=== PATIENT | female | born 1950 | race Caucasian/White ===

== ENCOUNTER 2019-07-09 15:27 | Inpatient (IN) | payer OTHER ==
[~2019-07-09 15:27] MED LIST: SODIUM CHLORIDE 1,000 ML IV ONE
[2019-07-09] MEDS ORDERED: ONDANSETRON 4 MG/2 ML VIAL IVPB ONE (15:54)
[2019-07-09] MEDS ORDERED: morphine CARPU-JECT 2 MG/1 ML DISP.SYRIN IVPUSH ONE ×3 (15:54→19:18)
--- NOTE | 2019-07-09 15:59 | PDOC ---
History of Present Illness - General Chief Complaint: Nausea/Vomiting Stated Complaint: VOMITING, ABD PAIN Time Seen by Provider: 07/09/19 15:31 History Source: Patient Exam Limitations: No Limitations - History of Present Illness Travel History: No Initial Comments: 07/09/19 15:54 69y F hx of htn presents with lower abd pain. Pt notse she has had a mass on her suprpuabic region for many years, it typically is soft and non painful, but occasionally would become more painful and hard, but wuld usually spontaneously resolve. The pt notse today it started while she was watching a swim meet and has not gone away, there was 2 episodes of nbnb vomiting. she did hav ea bm prior to arrival [place] tw[place] normal. pt denies any cp, sob, fever/chills, back pain , dysuria/hematuria. no pmd last meal around noon but had some water around 2pm family hx noncontributory social: denies etoh abuse, ivdu ROS Constitutional - no reported Fever, Chills, HEENT: no reported vision changes, sore throat Respiratory: no reported cough, sob, hemoptysis Cardiac: no reported chest pain, palpitations, light headedness, leg swelling Abd/GI: +abd pain, nausea, vomiting, no reported blood per rectum, melena, diarrhea : no reported dysuria, frequency, discharge Musculskelatal - no reported back pain, joint swelling skin - no reported bruising, erythema, rash neurological: no reported headache, numbness, focal weakness, tingling, ataxia, hematologic: no reported easy bruising, easy bleeding Physical Exam GENERAL: The patient is awake, alert, and fully oriented, Nontoxic - in no acute distress. HEAD: Normocephalic, atraumatic. EYES: extraocular movements intact, sclera anicteric, conjunctiva clear. ENT: Normal voice, Moist mucous membranes. NECK: Normal range of motion, supple LUNGS: Breath sounds equal, clear to auscultation bilaterally. No wheezes, no rhonchi, no rales. HEART: Regular rate and rhythm, normal S1 and S2 without murmur, rub or gallop. ABDOMEN: Soft, large hernia measuring approx ~10cm x 10cm on suprpubic/inguinal region that is firm and tender to palpation EXTREMITIES: Normal range of motion, no edema. No clubbing or cyanosis. No cords, erythema, or tenderness. NEUROLOGICAL: No facial assymetry, Normal speech, PSYCH: Normal mood, normal affect. SKIN: Warm, Dry, normal turgor, suspect hernia will attempt reduction, if not successful will obtain CT of abdomen Past History - Past Medical History Allergies/Adverse Reactions: Allergies Allergy/AdvReac Type Severity Reaction Status Date / Time No Known Allergies Allergy Verified 07/09/19 15:31 Home Medications: Ambulatory Orders Bisoprolol 2.5MG/Hctz 6.25MG [Ziac (Nf)] 1 tab PO DAILY 07/09/19 COPD: No HTN: Yes - Suicide/Smoking/Psychosocial Hx Smoking History: Never smoked Hx Alcohol Use: Yes (SOCIAL) Drug/Substance Use Hx: No *Physical Exam - Vital Signs Last Vital Signs Temp Pulse Resp BP Pulse Ox 97.7 F 59 L 20 195/97 H 95 07/09/19 15:28 07/09/19 15:28 07/09/19 15:28 07/09/19 15:28 07/09/19 15:28 ED Treatment Course - LABORATORY CBC & Chemistry Diagram: 07/10/19 07:25 07/10/19 07:25 Medical Decision Making - Medical Decision Making 07/09/19 17:12 ct abd suggestive of incarcerated hernia will discuss with surgery 07/09/19 17:[address] rocha will transfer to surgery for evaluation and possible surgury as OR not available here. 07/09/19 17:[address] mcdaniel agree with admission for further management *DC/Admit/Observation/Transfer Diagnosis at time of Disposition: Incarcerated inguinal hernia - Discharge Dispostion Disposition: HOME Condition at time of disposition: Improved Decision to Admit order: Yes - Referrals - Patient Instructions - Post Discharge Activity
[2019-07-09] MEDS ORDERED: ONDANSETRON 4 MG/2 ML VIAL ONE (16:04)
[2019-07-09] MEDS ORDERED: morphine SULFATE 4 MG/ML VIAL ONE ×3 (16:04→19:19)
[2019-07-09 16:19] LABS: BASO % 0.3 % (0-2.0); EOS % 0.2 % (0-4.5); HEMATOCRIT 45.2 % (32.4-45.2); HEMOGLOBIN 15.1 GM/dl (10.7-15.3); LYMPH % 9.5 % (8-40); MCH 27.2 pg (25.7-33.7); MCHC 33.3 g/dl (32.0-36.0); MEAN CELL VOLUME 81.6 fl (80-96); MEAN PLT VOLUME 10.7 fl (7.5-11.1); MONO % 1.3 % (3.8-10.2); NEUT % 88.7 % (42.8-82.8); PLATELET COUNT 208 K/MM3 (134-434); RBC 5.53 M/mm3 (3.60-5.2); RDW 13.6 % (11.6-15.6); WHITE BLOOD COUNT 12.5 K/mm3 (4.0-10.8)
[2019-07-09 16:33] LABS: ALBUMIN 4.3 g/dl (3.4-5.0); BILIRUBIN,TOTAL 0.8 mg/dl (0.2-1); CALCIUM 9.4 mg/dl (8.5-10); CREATININE 0.6 mg/dl (0.55-1.3); POTASSIUM 3.5 mmol/L (3.5-5.1); TOT PROT 7.3 g/dl (6.4-8.2)
[2019-07-09] MEDS ORDERED: morphine CARPU-JECT 4 MG/1 ML DISP.SYRIN IVPUSH ONE (17:13)
[2019-07-09] MEDS ORDERED: METOCLOPRAMIDE HCL INJECTION 10 MG/2 ML VIAL IVPUSH ONE (17:16)
[2019-07-09] MEDS ORDERED: METOCLOPRAMIDE HCL INJECTION 10 MG/2 ML VIAL ONE (17:48)
[2019-07-09 17:52] LABS: INR 1.14 (0.82-1.09); PROTHROMBIN TIME (PATIENT) 12.7 SEC (10.2-13.0)
--- NOTE | 2019-07-09 18:24 | CONSULT ---
Consult Consult Specialty:: General Surgery Reason for Consultation:: incarcerated groin hernia - History of Present Illness Chief Complaint: groin pain History of Present Illness: 69yo female PMH obesity, htn, undiagnosed DM type 2, and a long standing right inguinal hernia presented with acut onsent pain in the lower abdomen. She noted she has had a mass on her suprpuabic region for many years, it typically is soft and non painful, but occasionally would become more painful and hard, but wuld usually spontaneously resolve. The pt notse today it started while she was watching a swim meet and has not gone away, there was 2 episodes of nbnb vomiting. she did hav ea bm prior to arrival [place] normal. pt denies any cp, sob, fever/chills, back pain, dysuria/hematuria. Ct confirms chronically incarcerated RIH with intenstinal contents. we were called assess. - History Source History Provided By: Patient, Medical Record Limitations to Obtaining History: No Limitations - Past Medical History Cardio/Vascular: Yes: HTN Gastrointestinal: Yes: Other (long standing inguinal hernia ) Additional Medical History: obesity - Alcohol/Substance Use Hx Alcohol Use: Yes (SOCIAL) History of Substance Use: reports: None - Smoking History Smoking history: Never smoked - Social History Place of : [facility] Home Medications - Allergies Allergies/Adverse Reactions: Allergies Allergy/AdvReac Type Severity Reaction Status Date / Time No Known Allergies Allergy Verified 07/09/19 15:31 - Home Medications Home Medications: Ambulatory Orders Bisoprolol 2.5MG/Hctz 6.25MG [Ziac (Nf)] 1 tab PO DAILY 07/09/19 Review of Systems - Review of Systems Constitutional: denies: Chills, Fever Eyes: denies: Blind Spots, Recent Change in Vision HENT: denies: Difficult Swallowing, Throat Pain Neck: denies: Pain on Movement, Tenderness Cardiovascular: denies: Chest Pain, Palpitations Respiratory: denies: Cough, SOB Gastrointestinal: reports: Abdominal Pain, Constipation. denies: Diarrhea, Dysphagia Breasts: reports: No Symptoms Reported. denies: Pain Musculoskeletal: denies: Back Pain, Joint Swelling, Muscle Pain Integumentary: denies: Lesions, Rash Neurological: denies: Syncope, Tremors Endocrine: denies: Unexplained Weight Gain, Unexplained Weight Loss Hematology/Lymphatic: denies: Easily Bruised, Excessive Bleeding Psychiatric: denies: Anxiety, Depression Physical Exam Vital Signs: Vital Signs Temperature 97.8 F 07/09/19 17:42 Pulse Rate 65 07/09/19 17:42 Respiratory Rate 18 07/09/19 17:42 Blood Pressure 160/85 07/09/19 17:42 O2 Sat by Pulse Oximetry (%) 95 07/09/19 17:42 Constitutional: Yes: Well Nourished, No Distress, Calm, Obese Eyes: Yes: Conjunctiva Clear, EOM Intact HENT: Yes: Atraumatic, Normocephalic Neck: Yes: Supple, Trachea Midline Cardiovascular: Yes: Regular Rate and Rhythm, S1, S2 Respiratory: Yes: Regular, CTA Bilaterally Gastrointestinal: Yes: Normal Bowel Sounds, Soft, Abdomen, Obese, Hernia (right inguinal hernia 8cm), Tenderness. No: Tenderness, Epigastrium ...Rectal Exam: Yes: Deferred Renal/: No: CVA Tenderness - Left, CVA Tenderness - Right Musculoskeletal: No: Muscle Pain, Muscle Weakness Extremities: No: Cool, Cyanosis Edema: No Peripheral Pulses WNL: Yes Integumentary: No: Jaundice, Rash Neurological: Yes: Alert, Oriented Psychiatric: Yes: Alert, Oriented Labs: CBC, BMP 07/09/19 16:00 07/09/19 16:00 Imaging - Results Cat Scan: Report Reviewed, Image Reviewed Problem List - Problems (1) Incarcerated right inguinal hernia Assessment/Plan: 69yo female with incarcearated Right inguinal hernia confirmed on CT scan, reduced prior to OR, will post postpone until morning. Hyperglycemia (Random fasting glucose 292) NPO and IVF hydration IV antibiotics Adequate analgesia NGT if emesis starts OR for emergent repair before bowel compromise ensues Discussed with patient risks, benefits and alternatives of laparoscopic possible open ectomy, including but not limited to bleeding, infection, injury to adjacent structures, leak or injury, intraabdominal abscess, incisional hernia, need for further procedures, ; alternatives include antibiotics, delayed or no surgery - risks of this include failure of nonoperative therapy, perforation, sepsis, recurrence, . Patient desires to proceed with operation - will take to OR for above. Informed consent signed for same. Thank you for the opportunity to participate in the care of this patient. Code(s): K40.30 - UNIL INGUINAL HERNIA, W OBST, W/O GANGR, NOT SPCF RECUR (2) Abdominal pain in female patient Code(s): R10.9 - UNSPECIFIED ABDOMINAL PAIN (3) HTN (hypertension) Code(s): I10 - ESSENTIAL (PRIMARY) HYPERTENSION Qualifiers: Hypertension type: essential hypertension Qualified Code(s): I10 - Essential (primary) hypertension (4) Obesity (BMI 30.0-34.9) Code(s): E66.9 - OBESITY, UNSPECIFIED (5) Leukocytosis Code(s): D72.829 - ELEVATED WHITE BLOOD CELL COUNT, UNSPECIFIED (6) Inguinal hernia with bowel obstruction Code(s): K40.30 - UNIL INGUINAL HERNIA, W OBST, W/O GANGR, NOT SPCF RECUR
[2019-07-09] MEDS ORDERED: fentaNYL CITRATE 250 MCG/5 ML VIAL ONE (19:25)
[2019-07-09] MEDS ORDERED: MIDAZOLAM HCL 2 MG/2 ML SINGLE DOSE VIAL ONE (19:25)
[2019-07-09] MEDS ORDERED: ROCURONIUM BROMIDE 50 MG/5 ML SYRINGE ONE (19:26)
[2019-07-09] MEDS ORDERED: SUCCINYLCHOLINE CHLORIDE 200 MG/10 ML SYRINGE ONE (19:26)
[2019-07-09] MEDS ORDERED: LIDOCAINE HCL/PF 2% SDV 5ML VIAL ONE (19:27)
[2019-07-09] MEDS ORDERED: PROPOFOL 20 ML ONE (19:27)
[2019-07-09] MEDS ORDERED: KETOROLAC TROMETHAMINE 30 MG/1 ML VIAL ONE (19:28)
[2019-07-09] MEDS ORDERED: DEXAMETHASONE SOD PHOSPHATE 4 MG/1 ML VIAL ONE (19:28)
--- NOTE | 2019-07-09 19:31 | HP ---
Admitting History and Physical - Primary Care Physician PCP: None - Admission Chief Complaint: Abdominal Pain, Vomiting History of Present Illness: This is a 69 y/o woman with a PMHx of HTN, HLD, abdominal mass x years. Who presents from [place] ED with suprapubic abdominal pain, swelling and vomiting x today. Patient reports while at a swim meet she began to have severe pain that was unresolved. She reports having NBNB emesis. Patient reports eating cranberry with nuts today. Had a BM today. Patient denies fever, chills, cough, [place], dizziness, CP, palpitations, diarrhea, constipation, dysuria History Source: Patient Limitations to Obtaining History: No Limitations - Past Medical History Cardiovascular: Yes: HTN Gastrointestinal: Yes: Other (long standing inguinal hernia ) Reproductive: Yes: Postmenopausal Additional Past Medical History: Retinal Detachment and Repair R- Eye - Past Surgical History Additional Past Surgical History: Retinal Detachment Repair - Smoking History Smoking history: Never smoked - Alcohol/Substance Use Hx Alcohol Use: Yes (SOCIAL) History of Substance Use: reports: None - Social History Usual Living Arrangement: Yes: With Spouse, With Child ADL: Independent 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 History of Recent Travel: No Home Medications - Allergies Allergies/Adverse Reactions: Allergies Allergy/AdvReac Type Severity Reaction Status Date / Time No Known Allergies Allergy Verified 07/09/19 15:31 - Home Medications Home Medications: Ambulatory Orders Bisoprolol 2.5MG/Hctz 6.25MG [Ziac (Nf)] 1 tab PO DAILY 07/09/19 Family Disease History - Family Disease History Family Disease History: Heart Disease: Father ([place]), Other: Mother (Dementia) Other Family History: Maternal Aunt, Cousin- Diabetes Review of Systems - Review of Systems Constitutional: reports: No Symptoms Eyes: reports: No Symptoms HENT: reports: No Symptoms Neck: reports: No Symptoms Cardiovascular: reports: No Symptoms Respiratory: reports: No Symptoms Gastrointestinal: reports: Abdominal Pain, Vomiting Genitourinary: reports: No Symptoms Breasts: reports: No Symptoms Reported Musculoskeletal: reports: No Symptoms Integumentary: reports: No Symptoms Neurological: reports: No Symptoms Endocrine: reports: No Symptoms Hematology/Lymphatic: reports: No Symptoms Psychiatric: reports: No Symptoms Pain Intensity: 0 Physical Examination Vital Signs: Vital Signs Temperature 97.8 F 07/09/19 18:22 Pulse Rate 57 L 07/09/19 18:22 Respiratory Rate 20 07/09/19 18:22 Blood Pressure 169/89 07/09/19 18:22 O2 Sat by Pulse Oximetry (%) 95 07/09/19 17:42 Constitutional: Yes: Well Nourished, No Distress, Calm, Obese Eyes: Yes: WNL, Conjunctiva Clear, EOM Intact, PERRL HENT: Yes: WNL, Atraumatic, Normocephalic Neck: Yes: WNL, Supple, Trachea Midline Cardiovascular: Yes: WNL, Regular Rate and Rhythm, S1, S2 Respiratory: Yes: WNL, Regular, CTA Bilaterally Gastrointestinal: Yes: Soft, Hypoactive Bowel Sounds. No: Tenderness, Tenderness, Epigastrium ...Rectal Exam: Yes: Deferred Renal/: Yes: WNL Breast(s): Yes: WNL Musculoskeletal: Yes: WNL Extremities: Yes: WNL Edema: No Peripheral Pulses WNL: Yes Neurological: Yes: WNL, Alert, Oriented, Cran Nerves II-XII Intact ...Motor Strength: WNL Psychiatric: Yes: WNL, Alert, Oriented Labs: CBC, BMP 07/09/19 16:00 07/09/19 16:00 Imaging - Results EKG: Image Reviewed Problem List - Problems (1) Incarcerated inguinal hernia Assessment/Plan: CTAP- suggestive incarcerated hernia Surgeon aware and is following- OR in am WBC 12.5 Zosyn started in ED, continue Continue IVF CBC, BMP, Lactic Acid in am Monitor vitals Code(s): K40.30 - UNIL INGUINAL HERNIA, W OBST, W/O GANGR, NOT SPCF RECUR (2) Leukocytosis Assessment/Plan: Likely secondary to incarcerated hernia Monitor CBC Zosyn given in ED, continue Monitor vitals Code(s): D72.829 - ELEVATED WHITE BLOOD CELL COUNT, UNSPECIFIED (3) Hyperglycemia Assessment/Plan: Possible new onset DM Glucose 171 BGMs HgbA1c in am ISS when diet resumed Consider Endocrinology consult outpatient Code(s): R73.9 - HYPERGLYCEMIA, UNSPECIFIED (4) HLD (hyperlipidemia) Assessment/Plan: Stable no current med Code(s): E78.5 - HYPERLIPIDEMIA, UNSPECIFIED (5) HTN (hypertension) Assessment/Plan: Stable Monitor BP Hold med for now- OR in am Lopressor IV prn Code(s): I10 - ESSENTIAL (PRIMARY) HYPERTENSION Qualifiers: Hypertension type: essential hypertension Qualified Code(s): I10 - Essential (primary) hypertension Assessment/Plan This is a 69 y/o woman with a PMHx of HTN, HLD, Abdominal Mass. Admitted for Incarcerated Hernia for further evaluation of their emergent condition Plan: See Problem List FEN NS@75ml/hr Replete lytes prn NPO DVT ppx OOB SCDs Hold AC- OR, then resume Dispo: Requires Inpatient Care Visit type - Emergency Visit Emergency Visit: Yes ED Registration Date: 07/09/19 Care time: The patient presented to the Emergency Department on the above date and was hospitalized for further evaluation of their emergent condition. - New Patient This patient is new to me today: Yes Date on this admission: 07/09/19 - Critical Care Critical Care patient: No
[2019-07-09 22:54] VITALS: BMI 34.3
[2019-07-10] MEDS: LACTATED RINGERS SOLUTION 1,000 ML IV SCH ×2 (03:20→15:41)
[2019-07-10] MEDS ORDERED: PIPERACILLIN/TAZOB 3.375 GM 3.375 GM in DEXTROSE 5%-WATER - 50 ML IVPB ONE ×2 (05:36→12:00)
[2019-07-10] MEDS ORDERED: PIPERACILLIN/TAZOBACTAM 3.375 GM VIAL IVPB ONE ×2 (05:46→16:21)
[2019-07-10] MEDS ORDERED: DEXTROSE 5%-WATER - 50 ML IVPB ONE ×2 (05:47→16:22)
[2019-07-10] MEDS ORDERED: fentaNYL CITRATE 250 MCG/5 ML VIAL ONE (07:22)
[2019-07-10] MEDS ORDERED: MIDAZOLAM HCL 2 MG/2 ML SINGLE DOSE VIAL ONE ×3 (07:23→08:41)
[2019-07-10] MEDS ORDERED: ROCURONIUM BROMIDE 50 MG/5 ML SYRINGE ONE (07:23)
[2019-07-10] MEDS ORDERED: PROPOFOL 20 ML ONE (07:23)
[2019-07-10] MEDS ORDERED: LIDOCAINE HCL 1%, 10 MG/ML (20ML VIAL) ONE (07:35)
[2019-07-10] MEDS ORDERED: ONDANSETRON 4 MG/2 ML VIAL IVPUSH PRN ×3 (07:51→16:05)
[2019-07-10 08:13] LABS: BASO % 0.3 % (0-2.0); EOS % 0.2 % (0-4.5); HEMATOCRIT 40.1 % (32.4-45.2); HEMOGLOBIN 13.5 GM/dL (10.7-15.3); LYMPH % 17.6 % (8-40); MCH 27.1 pg (25.7-33.7); MCHC 33.8 g/dl (32.0-36.0); MEAN CELL VOLUME 80.2 fl (80-96); MEAN PLT VOLUME 10.3 fl (7.5-11.1); MONO % 6.8 % (3.8-10.2); NEUT % 75.1 % (42.8-82.8); PLATELET COUNT 203 K/MM3 (134-434); RBC 4.99 M/mm3 (3.60-5.2); RDW 14.8 % (11.6-15.6); WHITE BLOOD COUNT 8.4 K/mm3 (4.0-10.0)
[2019-07-10] MEDS ORDERED: morphine SULFATE/PF 0.5 MG/ML (2cc Syringe - QUVA) IT ONE (08:28)
[2019-07-10] MEDS ORDERED: ceFAZolin SODIUM 1 GM VIAL ONE (08:35)
[2019-07-10] MEDS ORDERED: KETOROLAC TROMETHAMINE 30 MG/1 ML VIAL ONE (08:35)
[2019-07-10] MEDS ORDERED: ceFAZolin SODIUM 1 GM VIAL IVPB ONE (08:40)
[2019-07-10] MEDS ORDERED: ePHEDrine SULFATE 50 MG/1 ML AMPULE ONE (08:40)
--- NOTE | 2019-07-10 08:41 | CON.ID ---
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 History of Recent Travel: No Home Medications - Allergies Allergies/Adverse Reactions: Allergies Allergy/AdvReac Type Severity Reaction Status Date / Time No Known Allergies Allergy Verified 07/09/19 15:31 - Home Medications Home Medications: Ambulatory Orders Bisoprolol 2.5MG/Hctz 6.25MG [Ziac (Nf)] 1 tab PO DAILY 07/09/19 Family Disease History - Family Disease History Family Disease History: Heart Disease: Father ([place]), Other: Mother (Dementia) Other Family History: Maternal Aunt, Cousin- Diabetes Physical Exam Vital Signs: Vital Signs Temperature 98.5 F 07/10/19 06:36 Pulse Rate 77 07/10/19 06:36 Respiratory Rate 20 07/10/19 06:36 Blood Pressure 137/80 07/10/19 06:36 O2 Sat by Pulse Oximetry (%) 97 07/09/19 19:41 Labs: CBC, BMP 07/10/19 07:25
[2019-07-10 08:46] LABS: BLOOD UREA NITROGEN 15.6 mg/dL (7-18); CALCIUM 8.7 mg/dL (8.5-10.1); CREATININE 0.7 mg/dL (0.55-1.3); POTASSIUM 3.7 mmol/L (3.5-5.1)
[2019-07-10] MEDS ORDERED: BUPIVACAINE HCL/PF 0.5% (5 MG/ML) 30 ML VIAL IJ ONE (08:48)
[2019-07-10] MEDS ORDERED: DEXAMETHASONE SOD PHOSPHATE 4 MG/1 ML VIAL ONE (08:49)
--- NOTE | 2019-07-10 09:59 | OP ---
Operative Note - Note: Operative Date: 07/10/19 Pre-Operative Diagnosis: incarcerated right inguinal hernia with bowel obstruction Operation: incarcerated right inguinal hernia repair with mesh and plug Findings: large 8cm hernia, defect was 2.cm, high ligation of the sac, bard lagre mesh pug , and bard monofilament 2"X4" mesh Implants: Bard 2"X4" monofilament mesh and Bard large plug Post-Operative Diagnosis: Same as Pre-op Surgeon: Levi Washington Anesthesiologist/PLUG WIRER: Ishmael Mckeon Anesthesia: Spinal Estimated Blood Loss (mls): 11 Drains, Volume Out (mls): 100 (hobson (removed)) Fluid Volume Replaced (mls): 700 Operative Report Dictated: Yes
[2019-07-10] MEDS: PIPERACILLIN/TAZOB 3.375 GM 3.375 GM in DEXTROSE 5%-WATER - 50 ML IVPB SCH ×2 (10:00→17:23)
[2019-07-10] MEDS ORDERED: NALOXONE HCL 0.4 MG/ML VIAL IVPUSH PRN (10:38)
[2019-07-10] MEDS: ACETAMINOPHEN 325 MG TABLET (FP) PO SCH ×3 (10:45→23:02)
[2019-07-10 12:56] LABS: INR 1.07 (0.83-1.09); PROTHROMBIN TIME (PATIENT) 12.6 SEC (9.7-13.0)
--- NOTE | 2019-07-10 13:44 | EKG ---
Test Reason : Blood Pressure : / mmHG Vent. Rate : 066 BPM Atrial Rate : 066 BPM P-R Int : 142 ms QRS Dur : 142 ms QT Int : 448 ms P-R-T Axes : 066 033 033 degrees QTc Int : 469 ms NORMAL SINUS RHYTHM RIGHT BUNDLE BRANCH BLOCK ABNORMAL ECG NO PREVIOUS ECGS AVAILABLE Confirmed by LAMONT WHITE MD ([id number]) on 07/10/2019 1:43:47 PM Referred By: MAURILIO LEE Confirmed By:LAMONT WHITE MD
[2019-07-10] MEDS ORDERED: ONDANSETRON 4 MG/2 ML VIAL IVPUSH ONE (16:05)
--- NOTE | 2019-07-10 16:06 | PN ---
Progress Note, Physician Chief Complaint: abdominal pain History of Present Illness: This is a 69 y/o woman with a significant past medical history of hypertension, hyperlipidemia, abdominal mass. She was presented to the ED suprapubic abdominal pain, swelling and vomiting. She was found to have an incarcerated right inguinal hernia with bowel obstruction. She is s/p incarcerated right inguinal hernia repair with mesh and plug with Dr. Washington today. imaging: CTAP 07/09/2019: large right inguinal hernia measuring 9.3cm containing small bowel loops - Current Medication List Current Medications: Active Medications Acetaminophen (Tylenol -) 650 mg PO Q6H [facility] Last Admin: 07/10/19 10:45 Dose: 650 mg Diphenhydramine HCl (Benadryl Injection -) 25 mg IVPUSH ONCE PRN PRN Reason: FOR ITCHING Lactated Ringer's (Lactated Ringers Solution) 1,000 mls @ 83 mls/hr IV ASDIR JONATHAN Last Admin: 07/10/19 15:41 Dose: 83 mls/hr Piperacillin Sod/Tazobactam (Sod 3.375 gm/ Dextrose) 50 mls @ 100 mls/hr IVPB Q8H-IV JONATHAN; Protocol Last Admin: 07/10/19 10:00 Dose: Not Given Naloxone HCl (Narcan -) 0.4 mg IVPUSH ONCE PRN PRN Reason: Sedation Ondansetron HCl (Zofran Injection) 4 mg IVPUSH ONCE PRN PRN Reason: NAUSEA Ondansetron HCl (Zofran Injection) 4 mg IVPUSH Q6H PRN PRN Reason: NAUSEA Ondansetron HCl (Zofran Injection) 4 mg IVPUSH ONCE ONE Stop: 07/10/19 16:06 - Objective Vital Signs: Vital Signs Temperature 97.8 F 07/10/19 15:30 Pulse Rate 68 07/10/19 15:30 Respiratory Rate 18 07/10/19 15:30 Blood Pressure 126/72 07/10/19 15:30 O2 Sat by Pulse Oximetry (%) 96 07/10/19 15:30 Constitutional: Yes: Well Nourished, No Distress, Calm HENT: Yes: Atraumatic Neck: Yes: WNL, Supple Cardiovascular: Yes: Regular Rate and Rhythm Respiratory: Yes: WNL, Regular Gastrointestinal: Yes: Soft, Other ...Rectal Exam: Yes: Deferred Genitourinary: Yes: WNL Extremities: Yes: WNL Edema: No Integumentary: Yes: Incision Wound/Incision: Yes: Clean/Dry Neurological: Yes: Alert, Oriented Labs: CBC, BMP 07/10/19 07:25 07/10/19 07:25 INR, PTT INR 1.07 (0.83-1.09) 07/10/19 12:20 Problem List - Problems (1) Right inguinal hernia Assessment/Plan: s/p incarcerated right inguinal hernia repair with mesh and plug with Dr. Washington today. post surgery care - incentive spirometer - pain management with scheduled tylenol - zofran prn - SCDs - monitor on tele - early ambulation Code(s): K40.90 - UNIL INGUINAL HERNIA, W/O OBST OR GANGR, NOT SPCF RECUR (2) HTN (hypertension) Assessment/Plan: restart home meds Code(s): I10 - ESSENTIAL (PRIMARY) HYPERTENSION Qualifiers: Hypertension type: essential hypertension Qualified Code(s): I10 - Essential (primary) hypertension (3) Incarcerated inguinal hernia Assessment/Plan: s/p surgical repair today Code(s): K40.30 - UNIL INGUINAL HERNIA, W OBST, W/O GANGR, NOT SPCF RECUR (4) Obesity (BMI 30.0-34.9) Assessment/Plan: nutritional evaluation as an outpatient Code(s): E66.9 - OBESITY, UNSPECIFIED (5) Prophylactic measure Assessment/Plan: fen on regular diet per surgery monitor electrolytes, labs in a.m. full code SCDs Code(s): Z29.9 - ENCOUNTER FOR PROPHYLACTIC MEASURES, UNSPECIFIED Visit type - Emergency Visit Emergency Visit: Yes ED Registration Date: 07/09/19 Care time: The patient presented to the Emergency Department on the above date and was hospitalized for further evaluation of their emergent condition. - New Patient This patient is new to me today: Yes Date on this admission: 07/10/19 - Critical Care Critical Care patient: No - Discharge Referral Referred to [facility] Med P.C.: No
[2019-07-11] MEDS ORDERED: DEXTROSE 5%-WATER - 50 ML IVPB ONE ×2 (01:28→09:41)
[2019-07-11] MEDS ORDERED: PIPERACILLIN/TAZOBACTAM 3.375 GM VIAL IVPB ONE ×2 (01:28→09:41)
[2019-07-11] MEDS: PIPERACILLIN/TAZOB 3.375 GM 3.375 GM in DEXTROSE 5%-WATER - 50 ML IVPB SCH ×2 (01:39→10:54)
[2019-07-11] MEDS: ACETAMINOPHEN 325 MG TABLET (FP) PO SCH ×2 (04:25→10:50)
--- NOTE | 2019-07-11 08:38 | PN ---
Progress Note (short form) - Note Progress Note: Anesthesia /Pain Pt seen and examined S:Alert and awake comfortable O: Vital Signs Temperature 98.0 F 07/11/19 06:00 Pulse Rate 68 07/11/19 06:00 Respiratory Rate 16 07/11/19 06:00 Blood Pressure 127/77 07/11/19 06:00 O2 Sat by Pulse Oximetry (%) 98 07/10/19 21:00 CBC, BMP 07/10/19 07:25 07/10/19 07:25 A/P: Current Active Problems Abdominal pain in female patient (Acute) HLD (hyperlipidemia) (Acute) HTN (hypertension) (Acute) Hyperglycemia (Acute) Incarcerated inguinal hernia (Acute) Incarcerated right inguinal hernia (Acute) Inguinal hernia with bowel obstruction (Acute) Leukocytosis (Acute) Obesity (BMI 30.0-34.9) (Acute) Prophylactic measure (Acute) Right inguinal hernia (Acute) s/p hernia repair Doing well post op Continue current care Omkar Marino MD
--- NOTE | 2019-07-11 09:33 | PN ---
Progress Note, Physician Chief Complaint: POD #1 inguinal hernia repair denies pain, no further nausea or vomiting. had two episodes overnight, none since. ate breakfast sitting in chair. denies pain only occasional "pulling" at the surgical site. History of Present Illness: This is a 69 y/o woman with a significant past medical history of hypertension, hyperlipidemia, abdominal mass. She was presented to the ED suprapubic abdominal pain, swelling and vomiting. She was found to have an incarcerated right inguinal hernia with bowel obstruction. She is s/p incarcerated right inguinal hernia repair with mesh and plug with Dr. Washington on 07/10/2019. imaging: CTAP 07/09/2019: large right inguinal hernia measuring 9.3cm containing small bowel loops - Current Medication List Current Medications: Active Medications Acetaminophen (Tylenol -) 650 mg PO Q6H JONATHAN Last Admin: 07/11/19 04:25 Dose: Not Given Diphenhydramine HCl (Benadryl Injection -) 25 mg IVPUSH ONCE PRN PRN Reason: FOR ITCHING Piperacillin Sod/Tazobactam (Sod 3.375 gm/ Dextrose) 50 mls @ 100 mls/hr IVPB Q8H-IV JONATHAN; Protocol Last Admin: 07/11/19 01:39 Dose: 100 mls/hr Naloxone HCl (Narcan -) 0.4 mg IVPUSH ONCE PRN PRN Reason: Sedation Non-Formulary Medication (Bisoprolol 2.5mg/Hctz 6.25mg) 1 tab PO DAILY JONATHAN Ondansetron HCl (Zofran Injection) 4 mg IVPUSH Q6H PRN PRN Reason: NAUSEA - Objective Vital Signs: Vital Signs Temperature 98.0 F 07/11/19 06:00 Pulse Rate 68 07/11/19 06:00 Respiratory Rate 16 07/11/19 06:00 Blood Pressure 127/77 07/11/19 06:00 O2 Sat by Pulse Oximetry (%) 98 07/10/19 21:00 Constitutional: Yes: Well Nourished, No Distress, Calm Eyes: Yes: WNL HENT: Yes: WNL, Atraumatic Neck: Yes: WNL Cardiovascular: Yes: Regular Rate and Rhythm Respiratory: Yes: Regular, CTA Bilaterally Gastrointestinal: Yes: Soft, Abdomen, Obese, Other (surgical site intact) ...Rectal Exam: Yes: Deferred Labs: CBC, BMP 07/10/19 07:25 07/10/19 07:25 INR, PTT INR 1.07 (0.83-1.09) 07/10/19 12:20 Problem List - Problems (1) Right inguinal hernia Assessment/Plan: s/p incarcerated right inguinal hernia repair with mesh and plug with Dr. Washington on 07/10/2019 post surgery care - incentive spirometer - pain management with scheduled tylenol - zofran prn - SCDs - oxygen sats stable - early ambulation Code(s): K40.90 - UNIL INGUINAL HERNIA, W/O OBST OR GANGR, NOT SPCF RECUR (2) HTN (hypertension) Assessment/Plan: restart home meds, has combo pill - NF here. patient to bring her own med bp stable. Code(s): I10 - ESSENTIAL (PRIMARY) HYPERTENSION Qualifiers: Hypertension type: essential hypertension Qualified Code(s): I10 - Essential (primary) hypertension (3) Incarcerated inguinal hernia Assessment/Plan: s/p surgical repair 07/10/19 Code(s): K40.30 - UNIL INGUINAL HERNIA, W OBST, W/O GANGR, NOT SPCF RECUR (4) Obesity (BMI 30.0-34.9) Assessment/Plan: nutritional evaluation as an outpatient Code(s): E66.9 - OBESITY, UNSPECIFIED (5) Prophylactic measure Assessment/Plan: fen on regular diet per surgery monitor electrolytes, labs in [facility].m. full [facility] [place] [facility] Code[facility]s): Z29.9 - ENCOUNTER FOR PROPHYLACTIC MEASURES, UNSPECIFIED Visit type - Emergency Visit Emergency Visit: Yes ED Registration Date: 07/09/19 Care time: The patient presented to the Emergency Department on the above date and was hospitalized for further evaluation of their emergent condition. - New Patient This patient is new to me today: No - Critical Care Critical Care patient: No - Discharge Referral Referred to [facility] Med P.C.: No
[2019-07-11] MEDS ORDERED: BISOPROLOL PO SCH (10:00)
[2019-07-11] MEDS ORDERED: [UNRECOGNIZED DRUG - OTHER] PO SCH (10:00)
[2019-07-11] MEDS ORDERED: ACETAMINOPHEN 325 MG TABLET (FP) PO PRN (11:48)
--- NOTE | 2019-07-11 12:17 | PN ---
Progress Note, Physician Chief Complaint: right groin pain History of Present Illness: 69yo female PMH obesity, htn, undiagnosed DM type 2, and a long standing right inguinal hernia presented with acut onsent pain in the lower abdomen. stable since surgery and tolertaing diet. - Current Medication List Current Medications: Active Medications Acetaminophen (Tylenol -) 650 mg PO Q6H PRN PRN Reason: PAIN LEVEL 6-10 Diphenhydramine HCl (Benadryl Injection -) 25 mg IVPUSH ONCE PRN PRN Reason: FOR ITCHING Piperacillin Sod/Tazobactam (Sod 3.375 gm/ Dextrose) 50 mls @ 100 mls/hr IVPB Q8H-IV JONATHAN; Protocol Last Admin: 07/11/19 10:54 Dose: 100 mls/hr Naloxone HCl (Narcan -) 0.4 mg IVPUSH ONCE PRN PRN Reason: Sedation Non-Formulary Medication (Bisoprolol 2.5mg/Hctz 6.25mg) 1 tab PO DAILY JONATHAN Ondansetron HCl (Zofran Injection) 4 mg IVPUSH Q6H PRN PRN Reason: NAUSEA - Objective Vital Signs: Vital Signs Temperature 98.0 F 07/11/19 06:00 Pulse Rate 68 07/11/19 06:00 Respiratory Rate 16 07/11/19 06:00 Blood Pressure 127/77 07/11/19 06:00 O2 Sat by Pulse Oximetry (%) 98 07/10/19 21:00 Constitutional: Yes: Well Nourished, No Distress, Calm, Obese Eyes: Yes: Conjunctiva Clear, EOM Intact HENT: Yes: Atraumatic, Normocephalic Neck: Yes: Supple, Trachea Midline Cardiovascular: Yes: Regular Rate and Rhythm, S1, S2 Respiratory: Yes: Regular, CTA Bilaterally Gastrointestinal: Yes: Normal Bowel Sounds, Soft. No: Tenderness ...Rectal Exam: Yes: Deferred Genitourinary: No: CVA Tenderness - Left, CVA Tenderness - Right Breast(s): No: Dimpling, Mass Musculoskeletal: No: Muscle Pain, Muscle Weakness Extremities: No: Cool, Cyanosis Edema: No Peripheral Pulses WNL: Yes Peripheral Pulses: Left Radial: 2+, Right Radial: 2+, Left Doralis Pedis: 2+, Right Dorsalis Pedis: 2+, Left Femoral: 2+, Right Femoral: 2+ Wound/Incision: Yes: Clean/Dry, Well Approximated, Dressing Dry and Intact Neurological: Yes: Alert, Oriented Psychiatric: Yes: Alert, Oriented Labs: CBC, BMP 07/10/19 07:25 07/10/19 07:25 INR, PTT INR 1.07 (0.83-1.09) 07/10/19 12:20 Problem List - Problems (1) Incarcerated right inguinal hernia Assessment/Plan: 69yo female with incarcearated Right inguinal hernia confirmed on CT scan, reduced prior to OR, will post postpone until morning. POD#1 s/p right inguinal hernia repair with mesh for an incarcerated hernia with SBO Diet as tolerated adequate analgesia discharge home Code(s): K40.30 - UNIL INGUINAL HERNIA, W OBST, W/O GANGR, NOT SPCF RECUR (2) Abdominal pain in female patient Code(s): R10.9 - UNSPECIFIED ABDOMINAL PAIN (3) HTN (hypertension) Code(s): I10 - ESSENTIAL (PRIMARY) HYPERTENSION Qualifiers: Hypertension type: essential hypertension Qualified Code(s): I10 - Essential (primary) hypertension (4) Obesity (BMI 30.0-34.9) Code(s): E66.9 - OBESITY, UNSPECIFIED (5) Leukocytosis Code(s): D72.829 - ELEVATED WHITE BLOOD CELL COUNT, UNSPECIFIED (6) Inguinal hernia with bowel obstruction Code(s): K40.30 - UNIL INGUINAL HERNIA, W OBST, W/O GANGR, NOT SPCF RECUR
--- NOTE | 2019-07-11 12:33 | DS ---
Physical Exam: SUBJECTIVE: Patient seen and examined POD #1 inguinal hernia repair denies pain, no further nausea or vomiting. had two episodes overnight, none since. ate breakfast sitting in chair. denies pain only occasional "pulling" at the surgical site. OBJECTIVE: cleared by surgery for discharge home Vital Signs Period Temp Pulse Resp BP Sys/Gatica Pulse Ox Last 24 Hr 97.7 F-98.2 F 65-78 15-20 118-152/67-77 95-98 PHYSICAL EXAM GENERAL: The patient is awake, alert, and fully oriented, in no acute distress. HEAD: Normal with no signs of trauma. EYES: PERRL, extraocular movements intact, sclera anicteric, conjunctiva clear. ENT: Ears normal, nares patent, oropharynx clear without exudates, moist mucous membranes. NECK: Trachea midline, full range of motion, supple. LUNGS: Breath sounds equal, clear to auscultation bilaterally, no wheezes, no crackles, no accessory muscle use. HEART: Regular rate and rhythm, S1, S2 without murmur, rub or gallop. ABDOMEN: dressing c/d/i. EXTREMITIES: 2+ pulses, warm, well-perfused, no edema. NEUROLOGICAL: Normal speech, gait steady LABS Laboratory Results - last 24 hr 07/10/19 07/11/19 12:20 03:27 PT with INR 12.60 INR 1.07 POC Glucometer 101 HOSPITAL COURSE: Date of Admission:07/09/19 Date of Discharge: 07/11/19 Minutes to complete discharge: 60 Discharge Summary Reason For Visit: INCARCERATED HERNEA Current Active Problems Abdominal pain in female patient (Acute) HLD (hyperlipidemia) (Acute) HTN (hypertension) (Acute) Hyperglycemia (Acute) Incarcerated inguinal hernia (Acute) Incarcerated right inguinal hernia (Acute) Inguinal hernia with bowel obstruction (Acute) Leukocytosis (Acute) Obesity (BMI 30.0-34.9) (Acute) Prophylactic measure (Acute) Right inguinal hernia (Acute) Condition: Improved - Instructions Diet, Activity, Other Instructions: Postoperative instructions: You had a repair of right inguinal hernia with Mesh on 07/10/[address] Levi Washington of [facility]. Activity: Resume your usual activities gradually, but no heavy exertion or lifting more than 10-15 pounds for 4-6 weeks. Remove dressings 48 hours after surgery, if they are not already off. You may shower daily starting then, just pat the incision areas dry. No bath or swimming until skin incisions have healed. [place] should not need to be recovered with any dressings, unless you have been told otherwise. Eat lightly at first, but advance to your usual diet as tolerated. Pain: For pain, you may use and alternate Tylenol (acetaminophen) 1-2 pills and/ or ibuprofen 200 mg (1-3 pills) every 6 hours each as needed; this means that you can take one OR the other at 3-hour intervals. If you are prescribed a Tylenol/narcotic combination for severe pain, use it instead of plain Tylenol as needed and switch back when your pain starts decreasing. Do not take more than 4000 mg of acetaminophen in a day. Take medications as prescribed or indicated on the labeling. Follow-up: Call Dr. Washington' office at [phone] to make your postop appointment (Saturday in approximately 2 weeks after surgery as advised). Clinic is held in the [facility] on the first floor of [facility]. Call the office if you have: * increasing pain not responsive to pain medication * fever of 101F or higher * vomiting * unusual or increasing bleeding or drainage from wounds * increasing redness or swelling at wound sites * inability to urinate Also, see your primary medical doctor within 1-2 weeks. Disposition: HOME - Home Medications Comprehensive Discharge Medication List: Ambulatory Orders Bisoprolol 2.5MG/Hctz 6.25MG [Ziac (Nf)] 1 tab PO DAILY 07/09/19 Problem List - Problems (1) Right inguinal hernia Assessment/Plan: s/p incarcerated right inguinal hernia repair with mesh and plug with Dr. Washington on 07/10/2019 post surgery care - incentive spirometer - pain management with tylenol - oxygen sats stable - ambulates with steady gait Code(s): K40.90 - UNIL INGUINAL HERNIA, W/O OBST OR GANGR, NOT SPCF RECUR (2) HTN (hypertension) Assessment/Plan: restart home meds, has combo pill - NF here. Code(s): I10 - ESSENTIAL (PRIMARY) HYPERTENSION Qualifiers: Hypertension type: essential hypertension Qualified Code(s): I10 - Essential (primary) hypertension (3) Incarcerated inguinal hernia Assessment/Plan: s/p surgical repair 07/10/19. dressing c/d/i. Code(s): K40.30 - UNIL INGUINAL HERNIA, W OBST, W/O GANGR, NOT SPCF RECUR (4) Obesity (BMI 30.0-34.9) Assessment/Plan: nutritional evaluation as an outpatient Code(s): E66.9 - OBESITY, UNSPECIFIED (5) Prophylactic measure Assessment/Plan: discharge home with surgery follow up Code(s): Z29.9 - ENCOUNTER FOR PROPHYLACTIC MEASURES, UNSPECIFIED This patient is new to me today: No Emergency Visit: Yes ED Registration Date: 07/09/19 Care time: The patient presented to the Emergency Department on the above date and was hospitalized for further evaluation of their emergent condition. Critical Care patient: No - Discharge Referral Referred to [facility] Med P.C.: No
--- NOTE | 2019-07-11 12:59 | PN ---
Progress Note, Physician History of Present Illness: stable no new issues post op doing well - Current Medication List Current Medications: Active Medications Acetaminophen (Tylenol -) 650 mg PO Q6H PRN PRN Reason: PAIN LEVEL 6-10 Last Admin: 07/11/19 12:16 Dose: 650 mg Diphenhydramine HCl (Benadryl Injection -) 25 mg IVPUSH ONCE PRN PRN Reason: FOR ITCHING Piperacillin Sod/Tazobactam (Sod 3.375 gm/ Dextrose) 50 mls @ 100 mls/hr IVPB Q8H-IV JONATHAN; Protocol Last Admin: 07/11/19 10:54 Dose: 100 mls/hr Naloxone HCl (Narcan -) 0.4 mg IVPUSH ONCE PRN PRN Reason: Sedation Non-Formulary Medication (Bisoprolol 2.5mg/Hctz 6.25mg) 1 tab PO DAILY JONATHAN Ondansetron HCl (Zofran Injection) 4 mg IVPUSH Q6H PRN PRN Reason: NAUSEA - Objective Vital Signs: Vital Signs Temperature 98.0 F 07/11/19 06:00 Pulse Rate 68 07/11/19 06:00 Respiratory Rate 16 07/11/19 06:00 Blood Pressure 127/77 07/11/19 06:00 O2 Sat by Pulse Oximetry (%) 98 07/10/19 21:00 Constitutional: Yes: No Distress, Calm Cardiovascular: Yes: Regular Rate and Rhythm Respiratory: Yes: Regular, CTA Bilaterally Gastrointestinal: Yes: Normal Bowel Sounds, Soft Musculoskeletal: Yes: WNL Extremities: Yes: WNL Wound/Incision: Yes: Clean/Dry Neurological: Yes: Alert, Oriented Psychiatric: Yes: Alert, Oriented Labs: CBC, BMP 07/10/19 07:25 07/10/19 07:25 INR, PTT INR 1.07 (0.83-1.09) 07/10/19 12:20 Assessment/Plan Problem List - Problems (1) Incarcerated right inguinal hernia Code(s): K40.30 - UNIL INGUINAL HERNIA, W OBST, W/O GANGR, NOT SPCF RECUR (2) Abdominal pain in female patient Code(s): R10.9 - UNSPECIFIED ABDOMINAL PAIN (3) HTN (hypertension) Code(s): I10 - ESSENTIAL (PRIMARY) HYPERTENSION Qualifiers: Hypertension type: essential hypertension Qualified Code(s): I10 - Essential (primary) hypertension (4) Obesity (BMI 30.0-34.9) Code(s): E66.9 - OBESITY, UNSPECIFIED (5) Leukocytosis Code(s): D72.829 - ELEVATED WHITE BLOOD CELL COUNT, UNSPECIFIED (6) Inguinal hernia with bowel obstruction Code(s): K40.30 - UNIL INGUINAL HERNIA, W OBST, W/O GANGR, NOT SPCF RECUR plan stop all abx doing well
[2019-07-11 13:30] VITALS: BP 129/71; PULSE 79; TEMP 98.6
--- NOTE | 2019-07-15 12:18 | OP ---
DATE OF OPERATION: 07/10/2019 PREOPERATIVE DIAGNOSIS: Incarcerated right inguinal hernia with associated bowel obstruction. POSTOPERATIVE DIAGNOSIS: Incarcerated right inguinal hernia with associated bowel obstruction. PROCEDURE: Incarcerated right inguinal hernia repair with mesh and plug. ATTENDING SURGEON: Levi Washington MD CAR SHUNTER: David Mckeon MD ANESTHESIA TYPE: Spinal and local. Local consisted of 0.5% Marcaine, a total of 10 mL given in area block fashion. ESTIMATED BLOOD LOSS: 11 mL. IV FLUID ADMINISTERED: 700 mL crystalloid. DRAIN: [place], 100 mL which was removed postoperatively. IMPLANT: Bard 2 inch x 4 inch monofilament mesh and large plug. FINDINGS: The patient had a large 8-cm hernia with a defect that was 2 cm, high ligation of the hernia sac, Bard mesh and plug. Bard monofilament 2 x 4-inch mesh used to repair. INDICATION: The patient is a 69-year-old female presenting with an acute incarceration of the right inguinal hernia which was longstanding. She was counseled regarding risks, benefits, and alternatives for surgical repair, signed informed consent, was taken for procedure. PROCEDURE: The patient was brought to the operating room, placed in supine position on the operating table. The right groin was prepped and draped in standard surgical fashion. The lower extremities had SCDs placed to compression. A spinal was placed by Anesthesia without complication. Supplemental oxygen was provided in addition to sedation. When patient was stable, we began first with a formal timeout, identifying the operative site and procedure. We began first with identifying by landmarks the inguinal ligament between the pubic symphysis and the anterior superior iliac spine, at which point incision was scribed and incised with a 15 blade scalpel. It was deepened and widened through subcutaneous tissue, carried down to the external oblique fascia, which was identified by the fibers and then opened towards the external ring. Once this had been made, the external oblique fascia was reflected, identifying then the pubic tubercle. The round ligament cord was isolated with the hernia sac carefully and encircled with a [place] drain. With the structures identified and the hernia identified, the fibers were divided, of the transversalis muscle and extension, and then the hernia sac was opened. With this done, we were able to reduce the contents of the hernia sac, which appeared to be primarily omentum and a small portion of the cecum. They were reduced into the abdomen after inspected and appeared to be vital. They were reduced into the abdomen and then a high ligation of the hernia sac was performed. This was done with 0 Vicryl stitch using a suture ligation. Once the high ligation was complete, the stump was inverted and then a large Bard plug was selected and then installed to keep the high ligation portion inverted. The floor of the hernia, the direct portion of the hernia was then repaired using a 2 x 4-inch Bard monofilament mesh. It was laid into position and then tacked with 2-0 Polysorb in interrupted fashion along with the plug system. Once laid in and tacked along the inguinal ligament and then again along the medial aspect of the Ravi ligament and the pubic tubercle, the tails were left to be placed below the external oblique fibers. With this complete, area hemostasis was obtained and then the external oblique was repaired over it with 0 Vicryl in running fashion. Once complete, a Valsalva was done, which appeared to demonstrate an adequate repair of the mesh with no reproduction of the hernia impulse. The area was irrigated and closed in layers. The Rodrigue fascia was approximated with 3-0 Vicryl in interrupted fashion along its length, followed by deep dermal closure with 3-0 Vicryl and lana at the skin. The patient was awoken from general anesthesia, having tolerated the procedure well. She was given instructions to follow up in a period of 1 week, was returned to recovery in stable condition. Counts were correct prior to closure of the abdomen. MD MARIA GUADALUPE [place]/[id number]
== END 2019-07-11 15:18 | disposition home or self-care (01) | DRG 352 ==
LOC: FER 15:27 → J8W 21:28 → JSAMEDAYSX 07-10 10:37 → J4S 07-10 15:43
PROVIDERS: ADMIT Internal Medicine; ATTEND Nurse Practitioner Family
PROC: 0YU50JZ Supplement Right Inguinal Region with Synthetic Substitute, Open Approach (ICD-10-PCS; principal; 2019-07-10 08:00)
DX: K40.30 Unilateral inguinal hernia, with obstruction, without gangrene, not specified as recurrent (principal); R73.9 Hyperglycemia, unspecified; I10 Essential (primary) hypertension; E66.9 Obesity, unspecified; Z68.34 Body mass index [BMI] 34.0-34.9, adult; E78.5 Hyperlipidemia, unspecified; D72.829 Elevated white blood cell count, unspecified
CPT/HCPCS: 36415; 71045-TC-FY; 74177-TC; 80048; 80053; 81003; 81015; 82962; 83036; 85025; 85610; 86850; 86900; 86901; 93005; 94760; 99284-25; J7030

== ENCOUNTER 2021-05-16 04:22 | Day surgery (SDC) | payer OTHER, MEDICARE ==
[2021-05-12 16:23] VITALS: BMI 31.1
[2021-05-16] MEDS ORDERED: PROPOFOL 20 ML ONE (10:22)
[2021-05-16] MEDS ORDERED: MIDAZOLAM HCL 2 MG/2 ML SINGLE DOSE VIAL ONE (10:22)
[2021-05-16] MEDS ORDERED: ONDANSETRON 4 MG/2 ML VIAL ONE (10:35)
[2021-05-16] MEDS ORDERED: DEXAMETHASONE SOD PHOSPHATE 4 MG/1 ML VIAL ONE (10:35)
[2021-05-16] MEDS ORDERED: KETOROLAC TROMETHAMINE 30 MG/1 ML VIAL ONE (10:46)
[2021-05-16] MEDS ORDERED: IBUPROFEN 600 MG TABLET (FP) PO PRN (11:15)
[2021-05-16] MEDS ORDERED: ONDANSETRON 4 MG/2 ML VIAL IVPUSH PRN (11:15)
[2021-05-16] MEDS ORDERED: oxyCODONE HCL 5 MG TABLET PO PRN ×2 (11:15→11:23)
[2021-05-16] MEDS ORDERED: IBUPROFEN 800 MG/8 ML IJ IVPB PRN (11:15)
[2021-05-16] MEDS ORDERED: ELECTROLYTE-148 SOLN 1,000 ML IV SCH (11:15)
[2021-05-16] MEDS ORDERED: LACTATED RINGERS SOLUTION 1,000 ML IV SCH (11:30)
[2021-05-16 13:53] VITALS: BP 134/76; PULSE 60; TEMP 97.9
== END 2021-05-16 13:15 | disposition home or self-care (01) ==
LOC: JASU-SURG 04:22
PROVIDERS: ATTEND Obstetrics & Gynecology
PROC: 0UDB7ZX Extraction of Endometrium, Via Natural or Artificial Opening, Diagnostic (ICD-10-PCS; principal; 2021-05-16 10:00)
PROC: 0UJD8ZZ Inspection of Uterus and Cervix, Via Natural or Artificial Opening Endoscopic (ICD-10-PCS; 2021-05-16 10:00)
DX: N95.0 Postmenopausal bleeding (principal)
CPT/HCPCS: 88305-TC; 88342-TC; 94760